=== PATIENT | female | born 2000 | race Caucasian/White ===

== ENCOUNTER 2019-05-17 08:41 | Outpatient (CLI) | payer BC, SELFPAY ==
--- NOTE | ~2019-05-17 | MR_ITS ---
EXAMINATION: MR brain/brain stem wo con DATE: 05/17/2019 09:56 FIRE CONTROL TECHNICIAN INDICATION: Right-sided headaches with visual disturbances. TECHNIQUE: Magnetic resonance imaging (MRI) of the brain and brainstem was performed without intraven ous contrast. Sequences included sagittal and axial T1-weighted SE, axial diffusion-weighted FS SE, a xial T2*-weighted GRE, axial T2-weighted FLAIR Propeller, and axial T2-weighted Propeller. [ Apparent diffusion coefficient (ADC) maps were created. COMPARISON: No prior studies for comparison. FINDINGS: The brain volume and ventricular system are within normal limits. The brain parenchymal si gnal intensity pattern and dong/white matter is normal and there is no evidence of hemorrhage, space occupying masses or infarctions. The flow signal voids of the major arterial structures about the [place] and within the [place] r dural venous sinuses appear grossly unremarkable and patent. The seventh and eighth cranial nerve complexes are normal. The mid sagittal image demonstrates a normal craniovertebral junction and [place] us callosum. There is mucosal thickening of the maxillary sinuses. IMPRESSION: 1: No significant intracranial abnormality. 2: Maxillary sinusitis. Reviewed, dictated and finalized at location B. CONTROL TECHNICIAN
== END 2019-05-17 08:42 | disposition home or self-care (01) ==
LOC: ANHIMG 08:59
DX: G44.52 New daily persistent headache (NDPH) (principal); J32.0 Chronic maxillary sinusitis
CPT/HCPCS: 70551